=== PATIENT | female | born 2000 | race Caucasian/White ===

== ENCOUNTER 2023-01-25 21:24 | Emergency (ER) | payer OTHER ==
[~2023-01-25] VITALS: Ht 175.3 cm; Wt 90.0 kg
[2023-01-25 21:29] VITALS: TEMP 98.2
[2023-01-25 21:47] VITALS: BP 135/56; PULSE 66; RESP 16
[2023-01-25] MEDS ORDERED: CEPH-558 PO (22:56)
[2023-01-25] MEDS ORDERED: BACTDSB PO (22:56)
[2023-01-25] MEDS ORDERED: SULFAMETHOX/TRIMETH DS 800-160 MG/TABLET PO ONE (23:00)
[2023-01-25] MEDS ORDERED: CEPHALEXIN MONOHYDRATE 500 MG CAPSULE PO ONE (23:00)
== END 2023-01-25 23:20 | disposition home or self-care (01) ==
LOC: EMS 21:27
DX: S61.214A Laceration without foreign body of right ring finger without damage to nail, initial encounter (principal); M87.04 Idiopathic aseptic necrosis of hand and fingers; W26.8XXA Contact with other sharp object(s), not elsewhere classified, initial encounter; Y93.89 Activity, other specified; Y92.89 Other specified places as the place of occurrence of the external cause; Y99.0 Civilian activity done for income or pay
CPT/HCPCS: 99283